=== PATIENT | female | born 1970 | race Caucasian/White ===

== ENCOUNTER → 2022-05-19 08:23 | Outpatient (BNVA) | payer OTHER, SELFPAY | PROVIDERS: PCP Internal Medicine; Visit Provider Nurse Practitioner Family | DX: G24.3 Spasmodic torticollis (principal) | CPT/HCPCS: 99212 ==

== ENCOUNTER → 2022-06-21 12:44 | Outpatient (BNVA) | payer OTHER, SELFPAY | PROVIDERS: Visit Provider Psychiatry & Neurology Neurology | DX: G24.3 Spasmodic torticollis (principal) | CPT/HCPCS: 64616; 99211; J0585 ==

== ENCOUNTER 2022-07-15 15:10 | Outpatient (REF) | payer OTHER, SELFPAY ==
--- NOTE | ~2022-07-15 | XR_ITS ---
EXAMINATION: XR CERVICAL SPINE CLINICAL INFORMATION: Cervicalgia COMPARISON: None available. TECHNIQUE: 6 views of the cervical spine, including flexion-extension views. FINDINGS: The vertebral alignment is normal. No prevertebral soft tissue swelling. Predental space is maintained. Vertebral body heights are maintained. No evidence of acute fracture. Disc spaces are relatively maintained. No evidence of abnormal subluxation on the flexion or extension views. Mild facet arthropathy at multiple levels. Apparent mild left neural foramen attachment in the upper neural foramen. XR/XR cervical spine w flex/ext IMPRESSION: No evidence of acute osseous abnormality. Mild cervical spondylosis
[2022-07-15 16:40] LABS: MANUAL DIFF FLAG NO
[2022-07-15 16:47] LABS: Basophils Absolute Auto 0.1 X10*3/uL (0.0-0.2); Basophils Percent Auto 1.1 % (0-2); Eosinophils Absolute Auto 0.2 X10*3/uL (0.0-0.4); Eosinophils Percent Auto 2.3 % (0-4); Hematocrit 44.5 % (37.0-47.0); Hemoglobin 14.7 g/dl (12.0-16.0); Imm Gran Abs Auto 0.03 X10*3/uL (0.00-0.03); Imm Gran Pct Auto 0.3 % (0.0-0.4); Lymphocytes Absolute Auto 2.8 X10*3/uL (1.2-4.9); Lymphocytes Percent Auto 29.5 % (20-40); Mean Corpuscular Hemoglobin 29.9 pg (27.0-33.0); Mean Corpuscular Volume 90.6 fL (80.0-98.0); Mean Platelet Volume 10.8 fL (9.4-12.3); Monocytes Absolute Auto 0.5 X10*3/uL (0.1-1.2); Monocytes Percent Auto 4.8 % (2-11); Neutrophils Absolute Auto 5.8 x10*3/uL (2.0-8.3); Platelet Count 199 X10*3/uL (160-400); Red Blood Count 4.91 X10*6/uL (4.20-5.50); Red Cell Distribution Width 13.2 % (11.0-16.0); White Blood Count 9.4 X10*3/uL (4.8-10.8)
[2022-07-15 17:40] LABS: Alanine Aminotransferase 15 U/L (0-31); Albumin Level 4.1 g/dL (3.5-5.0); Alkaline Phosphatase 97 U/L (39-117); Anion Gap 14 (12-20); Aspartate Amino Transferase 11 U/L (5-31); Bilirubin Total 0.3 mg/dL (0.0-1.0); Blood Urea Nitrogen 17 mg/dL (9-16); Calcium 9.4 mg/dL (8.4-10.2); Carbon Dioxide 27 mmol/L (22-29); Chloride 105 mmol/L (96-108); Estimated Glomerular Filt Rate > 60; Glucose Random 101 mg/dL (60-115); Potassium 3.7 mmol/L (3.3-5.1); Sodium 142 mmol/L (135-145); Total Protein 6.4 g/dL (6.5-8.0)
[2022-07-15 18:08] LABS: Folate 12.2 ng/mL (> or = 4.0); TSH reflex Free T4 1.84 uIU/mL (0.32-4.0); Vitamin B12 407 pg/mL (200-900)
== END 2022-07-15 15:11 | disposition home or self-care (01) ==
LOC: HO.HMGCLDS 15:10
PROVIDERS: Visit Provider Nurse Practitioner Family
DX: R20.2 Paresthesia of skin (principal); R53.83 Other fatigue; U07.1 COVID-19; M54.2 Cervicalgia
CPT/HCPCS: 36415; 72052; 80053; 82550; 82607; 82746; 84443; 85025

== ENCOUNTER 2022-07-28 09:38 | Outpatient (REF) | payer OTHER, SELFPAY ==
--- NOTE | 2022-07-28 09:40 | EMG_ITS ---
Bilateral median and ulnar motor and sensory studies were performed. Bilateral radial sensory studies were performed and paraspinal muscles were tested with a needle. IMPRESSION: No significant abnormality noted on this EEG to suggest entrapment neuropathy or radiculopathy. MD ALBERTO Saha/DUSTIN / [id number]
== END 2022-07-28 09:39 | disposition home or self-care (01) ==
LOC: HO.NEURO 09:38
PROVIDERS: Visit Provider Nurse Practitioner Family
DX: R20.2 Paresthesia of skin (principal); M54.2 Cervicalgia; R25.1 Tremor, unspecified
CPT/HCPCS: 95886; 95911

== ENCOUNTER → 2022-08-18 14:16 | Outpatient (BNVA) | payer OTHER, SELFPAY | PROVIDERS: Visit Provider Nurse Practitioner Family | DX: G24.3 Spasmodic torticollis (principal); R25.1 Tremor, unspecified; F32.A Depression, unspecified | CPT/HCPCS: 99212 ==

== ENCOUNTER → 2022-10-03 15:43 | Outpatient (BNVA) | payer OTHER, SELFPAY | PROVIDERS: Visit Provider Psychiatry & Neurology Neurology | DX: G24.3 Spasmodic torticollis (principal) | CPT/HCPCS: 64616; 99211; J0585 ==

== ENCOUNTER 2023-01-20 13:38 | Outpatient (AMB) | payer OTHER, SELFPAY ==
--- NOTE | 2023-01-20 13:43 | A.OFFVIS_ITS ---
Intake Vital Signs 01/20/23 13:45 Weight 168 lb 4 oz BP 120/70 Blood Pressure Location Rt brachial Position Sitting Pulse 96 Pulse Source Pulse Oximeter Pulse Oximetry (%) 98 Oxygen Delivery Method Room Air Intake Visit Reasons: Botox (B&B)-confirmed Intake Note: Pt is here for botox no new sxs Allergies prochlorperazine [From Compazine] Adverse Reaction (Intermediate, Verified 01/20/23 13:47) Unknown From COMPAZINE Allergy (Unknown, Uncoded 08/18/22 14:32) AGITATION Medication List - Last Reconciled 01/20/23 by Marily Rose MD ascorbic acid (vitamin C) 1 g PO Q6H cholecalciferol (vitamin D3) 25 mcg PO DAILY diphenhydramine HCl (Benadryl) 50 mg PO TID PRN gabapentin 100 - 300 mg (1 - 3 x 100 mg) PO BEDTIME 30 days loratadine (Allergy Relief (loratadine)) 10 mg PO DAILY onabotulinumtoxinA (Botox) 100 units IM ONCE 12 weeks HPI HPI Comments History of Present Illness0 Details 52 y/o female comes for treatment of her cervical dystonia ? Side effects including spread of toxin effect, dysphagia, breathing difficulties , bronchitis etc was discussed in detail and the patient agreed to the procedure.An informed consent was obtained ??? Botulinum toxin type A 100units X 1 -was diluted with 2 cc of normal saline at a concentration of 25 units in 0.5cc saline. Lot number [id number] expiration 06/2025 ??? Muscles injected ??? quique Splenius - 25 units each ??? Quique levator 25 units each ? Total used 100 units PFSH Surgical History History of hip replacement Hx of bone graft Hx of synovectomy Hx of appendectomy Family History Mother Hypertension Diabetes Maternal Grandmother Diabetes Paternal Grandfather Diabetes Paternal Grandmother Diabetes Social History Alcohol intake: never Patient Tobacco Use Status: Current everyday Tobacco user Physical Exam Vital Signs: Last Vital Signs Pulse 96 01/20/23 13:45 BP 120/70 01/20/23 13:45 Pulse Ox 98 01/20/23 13:45 Oxygen Delivery Method Room Air 01/20/23 13:45 Const General: cooperative and no acute distress Orientation/consciousness: patient oriented x3 HEENT Head: Yes normocephalic Resp Effort & Inspection: normal respiratory effort and able to speak in complete sentences Neuro Other: Head tremor. Tenderness in quique levator and splenius right laterocollis restricted range of motion Left shoulder region tightness. BUE postural tremor, left more so than right. LUE increased tremor w/ holding object. No appreciable tone in quique wrist or elbows. . General: patient oriented x3, gait normal and CN's II-XI intact bilaterally Cognition (Neuro): normal cognition Motor exam (neuro): 5/5 motor strength present throughout Psych Appearance: grossly normal Mental Status: mental status grossly normal Speech and movement: Clear speech present Affect: normal affect Attitude: cooperative Office Procedures Botulinum toxin Injection 60054 - Dystonia Procedure code (CPT) selection complete Office Meds onabotulinumtoxinA 100 unit solution for injection Performing Provider: Marily Rose MD Performing Location: [facility] [place] [facility] Administered by: Marily Rose MD on 01/20/23 14:26 Dose Route Admin Location Dispensed Lot Number Expiration Date 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 Panel Today R53.83 - Other fatigue Vitamin B12 and Folate Today R53.83 - Other fatigue Vitamin D 25-OH (D2 and D3) Today R53.83 - Other fatigue AMB Botulinum toxin Injection Today G24.3 - Spasmodic torticollis Coding Level of Care Code Est Pt Level 1 (05769) Diagnoses Cervical dystonia G24.3 CPT Codes Botox Injection - Botox 4: 79752 - Dystonia ([id number])
[2023-01-20 13:45] VITALS: BP 120/70; PULSE 96; O2SAT 98
== END 2023-01-20 14:15 | disposition home or self-care (01) ==
PROVIDERS: Visit Provider Psychiatry & Neurology Neurology
DX: G24.3 Spasmodic torticollis (principal)
CPT/HCPCS: 64616

== ENCOUNTER → 2023-01-20 13:38 | Outpatient (BNVA) | payer OTHER, SELFPAY | PROVIDERS: Visit Provider Psychiatry & Neurology Neurology | DX: G24.3 Spasmodic torticollis (principal) | CPT/HCPCS: 64616; 99211; J0585 ==

== ENCOUNTER 2023-05-22 07:25 | Outpatient (AMB) | payer OTHER, SELFPAY ==
--- NOTE | 2023-05-22 07:43 | A.OFFVIS_ITS ---
Intake Vital Signs 05/22/23 07:45 Height 5 ft 3 in Weight 160 lb 4 oz BMI 28.4 BP 132/70 Blood Pressure Location Rt brachial Position Sitting Respiration 16 Pulse 76 Pulse Source Palpation Intake Visit Reasons: Botox (B&B) - Confirmed Intake Note: Pt presents for Botox injections. 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 Allergies prochlorperazine [From Compazine] Adverse Reaction (Intermediate, Verified 05/22/23 07:43) Unknown From COMPAZINE Allergy (Unknown, Uncoded 05/22/23 07:43) AGITATION Medication List - Last Reconciled 05/22/23 by Marily Rose MD ascorbic acid (vitamin C) 1 g PO Q6H cholecalciferol (vitamin D3) 25 mcg PO DAILY diphenhydramine HCl (Benadryl) 50 mg PO TID PRN gabapentin 100 - 300 mg (1 - 3 x 100 mg) PO BEDTIME 30 days loratadine (Allergy Relief (loratadine)) 10 mg PO DAILY onabotulinumtoxinA (Botox) 100 units IM ONCE 12 weeks HPI HPI Comments History of Present Illness Details 52 y/o female comes for treatment of her cervical dystonia ? Side effects including spread of toxin effect, dysphagia, breathing difficulties , bronchitis etc was discussed in detail and the patient agreed to the procedure.An informed consent was obtained ??? Botulinum toxin type A 100units X 1 -was diluted with 2 cc of normal saline at a concentration of 25 units in 0.5cc saline. Lot number [id number] expiration 07/2025 ??? Muscles injected ??? aidan Splenius - 12.5 units each ??? Right levator 50 units each left levator - 25 units ? Total used 100 units [facility] Surgical History History of hip replacement Hx of bone graft Hx of synovectomy Hx of appendectomy Family History Mother Hypertension Diabetes Maternal Grandmother Diabetes Paternal Grandfather Diabetes Paternal Grandmother Diabetes Social History Alcohol intake: never Patient Tobacco Use Status: Current everyday Tobacco user Physical Exam Vital Signs: Last Vital Signs Pulse 76 05/22/23 07:45 Resp 16 05/22/23 07:45 BP 132/70 05/22/23 07:45 BMI result Body Mass Index 28.4 Const General: cooperative and no acute distress Orientation/consciousness: patient oriented x3 HEENT Head: Yes normocephalic Resp Effort & Inspection: normal respiratory effort and able to speak in complete sentences Neuro Other: Head tremor. Tenderness in aidan levator and splenius right laterocollis restricted range of motion Left shoulder region tightness. BUE postural tremor, left more so than right. LUE increased tremor w/ holding object. No appreciable tone in aidan wrist or elbows. . General: patient oriented x3, gait normal and CN's II-XI intact bilaterally Cognition (Neuro): normal cognition Motor exam (neuro): 5/5 motor strength present throughout Psych Appearance: grossly normal Mental Status: mental status grossly normal Speech and movement: Clear speech present Affect: normal affect Attitude: cooperative Office Procedures Botulinum toxin Injection 51998 - Dystonia Procedure code (CPT) selection complete Office Meds onabotulinumtoxinA 100 unit solution for injection Performing Provider: Marily Rose MD Per[place] [facility] [place] [facility] Administered by: Marily Rose MD on 05/22/23 10:05 Dose Route Admin Location Dispensed Lot Number Expiration Date [facility] [employer] 100 unit IM 100 units [id number] 07/30/25 6058-0907-68 [email or web address] Comments: see hpi Assessment & Plan Assessment & Plan (1) Cervical dystonia: Code(s): G24.3 - Spasmodic torticollis Plan Patient tolerated the procedure well she will call with any side effects Orders: Orders AMB Botulinum toxin Injection Today G24.3 - Spasmodic torticollis Coding Level of Care Code Est Pt Level 1 (09479) Diagnoses Cervical dystonia G24.3 CPT Codes Botox Injection - Botox 4: 50914 - Dystonia ([id number])
[2023-05-22 07:45] VITALS: BP 132/70; PULSE 76; RESP 16; BMI 28.4
== END 2023-05-22 08:10 | disposition home or self-care (01) ==
PROVIDERS: Visit Provider Psychiatry & Neurology Neurology
DX: G24.3 Spasmodic torticollis (principal)
CPT/HCPCS: 64616

== ENCOUNTER → 2023-05-22 07:25 | Outpatient (BNVA) | payer OTHER, SELFPAY | PROVIDERS: Visit Provider Psychiatry & Neurology Neurology | DX: G24.3 Spasmodic torticollis (principal) | CPT/HCPCS: 64616; 99211; J0585 ==

== ENCOUNTER 2023-08-15 12:51 | Outpatient (AMB) | payer OTHER, SELFPAY ==
--- NOTE | 2023-08-15 12:49 | MHC.OFFWIV ---
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 Intake Note: pt is here today for rt foot broken toe started today Patient Tobacco Use Status: Current everyday Tobacco user Allergies prochlorperazine [From Compazine] Adverse Reaction (Intermediate, Verified 08/15/23 13:34) Unknown From COMPAZINE Allergy (Unknown, Uncoded 08/15/23 13:34) AGITATION Medication List - Last Reconciled 08/15/23 by Moises Lozano MD ascorbic acid (vitamin C) 1 g PO Q6H cholecalciferol (vitamin D3) 25 mcg PO DAILY diphenhydramine HCl (Benadryl) 50 mg PO TID PRN gabapentin 100 - 300 mg (1 - 3 x 100 mg) PO BEDTIME 30 days meloxicam 15 mg PO DAILY onabotulinumtoxinA (Botox) 100 units IM ONCE 12 weeks Do you need a note to return to daycare/school/sports/work: Yes 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 Pt stubbed her right foot against the leg of a table. Happened today. PFSH Surgical History History of hip replacement Hx of bone graft Hx of synovectomy Hx of appendectomy Family History Mother Hypertension Diabetes Maternal Grandmother Diabetes Paternal Grandfather Diabetes Paternal Grandmother Diabetes Social History Alcohol intake: never Patient Tobacco Use Status: Current everyday Tobacco user Physical Exam Vital Signs: Last Vital Signs Temp 97.0 F 08/15/23 12:50 Pulse 88 08/15/23 12:50 BP 120/82 08/15/23 12:50 Pulse Ox 96 08/15/23 12:50 Oxygen Delivery Method Room Air 08/15/23 12:50 BMI result Body Mass Index 28.2 Extrem Other: Right foot: No bruising over the dorsum of the foot. Pain on flexion of the digits Assessment & Plan Assessment & Plan (1) Contusion, foot: Code(s): S90.30XA - Contusion of unspecified foot, initial encounter Plan: X ray images revd by me. No fracture seen. Meloxicam called in. Pt was advised to avoid weight bearing and keep the foot elevated. Orders: Orders XR foot RT min 3V Today S90.30XA - Contusion of unspecified foot, initial encounter Medications: New meloxicam 15 mg PO DAILY 14 tabs 0RF Coding Level of Care Code Est Pt Level 3 (89562) Diagnoses Contusion, foot S90.30XA
[2023-08-15 12:50] VITALS: BP 120/82; PULSE 88; TEMP 36.1; O2SAT 96; BMI 28.2
== END 2023-08-15 14:48 | disposition home or self-care (01) ==
PROVIDERS: Visit Provider Internal Medicine
DX: S90.30XA Contusion of unspecified foot, initial encounter (principal)
CPT/HCPCS: 99213

== ENCOUNTER 2023-08-15 13:08 | Outpatient (REF) | payer OTHER, SELFPAY ==
--- NOTE | ~2023-08-15 | XR_ITS ---
EXAMINATION: XR FOOT, RIGHT CLINICAL INFORMATION: Right foot contusion COMPARISON: Right foot 07/23/2008, report only TECHNIQUE: AP, lateral, and oblique views of the right foot. FINDINGS: There is mild hallux valgus. Some mild degenerative changes are present at the first MTP joint. There is plate and screw fusion of the navicular and cuboid. No acute soft tissue swelling, fractures or dislocations seen. XR/XR foot RT min 3V IMPRESSION: No evidence of an acute osseous injury. Mild hallux valgus and degenerative changes first MTP joint.
== END 2023-08-15 13:09 | disposition home or self-care (01) ==
LOC: HO.HMGCX 13:08
PROVIDERS: Visit Provider Internal Medicine
DX: S90.31XA Contusion of right foot, initial encounter (principal)
CPT/HCPCS: 73630

== ENCOUNTER 2023-08-23 08:12 | Outpatient (AMB) | payer OTHER, SELFPAY ==
[2023-08-23 09:10] VITALS: BP 126/76; PULSE 83; TEMP 36.3; O2SAT 97; BMI 28.0
--- NOTE | 2023-08-23 09:10 | AM.OFFWIN_ITS ---
Intake Vital Signs 08/23/23 09:10 Height 5 ft 3 in Weight 158 lb BMI 28.0 BP 126/76 Blood Pressure Location Lt brachial Position Sitting Pulse 83 Pulse Source Pulse Oximeter Temp 97.4 F Temp Source Temporal Artery Scan Pulse Oximetry (%) 97 Oxygen Delivery Method Room Air Intake Visit Reasons: EP Congestion, cold symptoms (masked) Intake Note: pt is here today for congestion cold symptoms started 2 days ago Patient Tobacco Use Status: Current everyday Tobacco user Allergies prochlorperazine [From Compazine] Adverse Reaction (Intermediate, Verified 08/23/23 09:47) Unknown From COMPAZINE Allergy (Unknown, Uncoded 08/23/23 09:47) AGITATION Medication List - Last Reconciled 08/23/23 by Moises Lozano MD ascorbic acid (vitamin C) 1 g PO Q6H cholecalciferol (vitamin D3) 25 mcg PO DAILY diphenhydramine HCl (Benadryl) 50 mg PO TID PRN Do you need a note to return to daycare/school/sports/work: Yes HPI EP Congestion, cold symptoms (masked) HPI Details Patient presents for a sick visit. Reporting symptoms of sinus congestion, sore throat and difficulty swallowing. Low-grade fever. No family member is sick. No recent travel. Patient reports symptoms of malaise and fatigue. [facility] Surgical History History of hip replacement Hx of bone graft Hx of synovectomy Hx of appendectomy Family History Mother Hypertension Diabetes Maternal Grandmother Diabetes Paternal Grandfather Diabetes Paternal Grandmother Diabetes Social History Alcohol intake: never Patient Tobacco Use Status: Current everyday Tobacco user Physical Exam Vital Signs: Last Vital Signs Temp 97.4 F 08/23/23 09:10 Pulse 83 08/23/23 09:10 BP 126/76 08/23/23 09:10 Pulse Ox 97 08/23/23 09:10 Oxygen Delivery Method Room Air 08/23/23 09:10 BMI result Body Mass Index 28.0 Const General: cooperative and healthy appearing Nutritional Appearance: well nourished Orientation/consciousness: patient oriented x3 Limitations: no limitations HEENT Head: Yes normal to inspection Eyes General: appearance normal, both eyes and all related structures Neck Neck: Yes normal visual inspection Chest Chest palpation & inspection: normal palpation of entire chest wall Resp Effort & Inspection: normal respiratory effort Neuro General: patient oriented x3 Assessment & Plan Assessment & Plan (1) Upper respiratory tract infection: Code(s): J06.9 - Acute upper respiratory infection, unspecified Plan: Antibiotics ordered. Increase fluid intake. Tylenol for aches and pains. If symptoms worsen, follow-up here for a recheck. Coding Level of Care Code Est Pt Level 3 (23820) Diagnoses Upper respiratory tract infection J06.9
== END 2023-08-23 10:43 | disposition home or self-care (01) ==
PROVIDERS: Visit Provider Internal Medicine
DX: J06.9 Acute upper respiratory infection, unspecified (principal)
CPT/HCPCS: 99213

== ENCOUNTER 2023-09-19 08:47 | Outpatient (AMB) | payer OTHER, SELFPAY ==
[2023-09-19 08:48] VITALS: BP 110/90; PULSE 77; TEMP 36.3; O2SAT 97; BMI 28.5
--- NOTE | 2023-09-19 08:48 | AM.OFFWIN_ITS ---
Intake Vital Signs 09/19/23 08:48 Height 5 ft 3 in Weight 161 lb BMI 28.5 BP 110/90 H Blood Pressure Location Lt brachial Position Sitting Pulse 77 Pulse Source Pulse Oximeter Temp 97.3 F Temp Source Temporal Artery Scan Pulse Oximetry (%) 97 Oxygen Delivery Method Room Air Intake Visit Reasons: EP congestion cough lightheaded Intake Note: pt is here today for congestion cough lightheaded started Patient Tobacco Use Status: Current everyday Tobacco user Allergies prochlorperazine [From Compazine] Adverse Reaction (Intermediate, Verified 09/19/23 08:57) Unknown From COMPAZINE Allergy (Unknown, Uncoded 08/23/23 09:47) AGITATION Do you need a note to return to daycare/school/sports/work: Yes HPI HPI Comments History of Present Illness Details 52-year-old female presents today compla ining of sinus pain and pressure for the last 2 weeks. She had a prior episode about a month ago and was put on azithromycin which resolved symptoms for a couple of days but then returned. She states she has sinus pain pressure and cough denies shortness of breath or chest pain PFSH Surgical History History of hip replacement Hx of bone graft Hx of synovectomy Hx of appendectomy Family History Mother Hypertension Diabetes Maternal Grandmother Diabetes Paternal Grandfather Diabetes Paternal Grandmother Diabetes Social History Alcohol intake: never Patient Tobacco Use Status: Current everyday Tobacco user Review of Systems Const All systems reviewed & are unremarkable except as noted in HPI and below Eyes Reports no additional complaints ENT Reports nasal congestion, Reports sinus pain and Reports sinus pressure Card Reports no additional complaints Resp Reports cough GI Reports no additional complaints Reports no additional complaints Physical Exam Vital Signs: Last Vital Signs Temp 97.3 F 09/19/23 08:48 Pulse 77 09/19/23 08:48 BP 110/90 H 09/19/23 08:48 Pulse Ox 97 09/19/23 08:48 Oxygen Delivery Method Room Air 09/19/23 08:48 BMI result Body Mass Index 28.5 HEENT Head: Yes normal to inspection, Yes normocephalic and Yes atraumatic Ears: hearing grossly normal bilaterally and TM's normal bilaterally General nose exam: Normal external nose present Face and sinus: Yes sinus tenderness Throat: Yes posterior oropharynx normal Resp Effort & Inspection: normal respiratory effort Auscultation: clear to auscultation bilaterally Cardio Palpation: normal PMI Rate: regular rate Rhythm: regular rhythm Assessment & Plan Assessment & Plan (1) Sinusitis: Code(s): J32.9 - Chronic sinusitis, unspecified Plan: The patient will be given an antibiotic and follow up with the PCP Plan See plan Medications: New amoxicillin 875 mg PO BID 14 tabs 0RF 7 days Coding Level of Care Code Est Pt Level 3 (46902) Diagnoses Sinusitis J32.9
== END 2023-09-19 09:51 | disposition home or self-care (01) ==
PROVIDERS: Visit Provider Physician Assistant Medical
DX: J32.9 Chronic sinusitis, unspecified (principal)
CPT/HCPCS: 99213

== ENCOUNTER 2023-12-28 10:10 | Outpatient (AMB) | payer OTHER, SELFPAY ==
--- NOTE | 2023-12-28 10:16 | A.OFFVIS_ITS ---
Vital Signs 12/28/23 10:17 Height 5 ft 3 in Weight 160 lb BMI 28.3 BP 108/72 Blood Pressure Location Rt brachial Position Sitting Respiration 16 Pulse 86 Pulse Source Pulse Oximeter Pulse Oximetry (%) 95 Oxygen Delivery Method Room Air Intake Visit Reasons: Botox Intake Note: Pt presents for Botox injections for cervical dystonia. 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 Allergies prochlorperazine [From Compazine] Adverse Reaction (Intermediate, Verified 12/28/23 10:17) Unknown From COMPAZINE Allergy (Unknown, Uncoded 12/28/23 10:17) AGITATION Medication List - Last Reconciled 12/28/23 by Marily Rose MD amoxicillin 875 mg PO BID 7 days ascorbic acid (vitamin C) 1 g PO Q6H azelastine 2 sprays intranasal BID 30 days azithromycin take 500 mg today (day 1), then 250 mg for 4 days (days 2-5) PO cholecalciferol (vitamin D3) 25 mcg PO DAILY diphenhydramine HCl (Benadryl) 50 mg PO TID PRN gabapentin 100 - 300 mg (1 - 3 x 100 mg) PO BEDTIME 30 days omeprazole 20 mg PO DAILY 90 days prednisone 60 mg (3 x 20 mg) PO DAILY 5 days HPI Comments Details: 53y/o female comes for treatment of her cervical dystonia ? Side effects including spread of toxin effect, dysphagia, breathing difficulties , bronchitis etc was discussed in detail and the patient agreed to the procedure.An informed consent was obtained ??? Botulinum toxin type A 100units X 2 -was diluted with 2 cc of normal saline at a concentration of 25 units in 0.5cc saline. Lot number [id number] expiration 01/2026 ??? Muscles injected ??? Right Splenius - 50 units each Left Splenius 25 units right SCM - 25 units ??? Quique levator 50 units each ? Total [id number] units PFS Surgical History History of hip replacement Hx of bone graft Hx of synovectomy Hx of appendectomy Family History Mother Hypertension Diabetes Maternal Grandmother Diabetes Paternal Grandfather Diabetes Paternal Grandmother Diabetes Social History Alcohol intake: never Patient Tobacco Use Status: Current everyday Tobacco user Physical Exam Vital Signs: Last Vital Signs Pulse 86 12/28/23 10:17 Resp 16 12/28/23 10:17 BP 108/72 12/28/23 10:17 Pulse Ox 95 12/28/23 10:17 Oxygen Delivery Method Room Air 12/28/23 10:17 BMI result Body Mass Index 28.3 Const General: cooperative and no acute distress Orientation/consciousness: patient oriented x3 HEENT Head: Yes normocephalic Resp Effort & Inspection: normal respiratory effort and able to speak in complete sentences Neuro Other: Head tremor. Tenderness in quique levator and splenius right laterocollis restricted range of motion Left shoulder region tightness. BUE postural tremor, left more so than right. LUE increased tremor w/ holding object. No appreciable tone in quique wrist or elbows. . General: patient oriented x3, gait normal and CN's II-XI intact bilaterally Cognition (Neuro): normal cognition Motor exam (neuro): 5/5 motor strength present throughout Psych Appearance: grossly normal Mental Status: mental status grossly normal Speech and movement: Clear speech present Affect: normal affect Attitude: cooperative Office Procedures Botulinum toxin Injection 01372 - Dystonia Procedure code (CPT) selection complete Office Meds onabotulinumtoxinA 100 unit solution for injection Performing Provider: Marily Rose MD Performing Location: [facility] [place] [facility] Administered by: Marily Rose MD on 12/28/23 10:46 Dose Route Admin Location Dispensed Lot Number Expiration Date [facility]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 Comments: see HPI Assessment & Plan Assessment & Plan (1) Cervical dystonia: Code(s): G24.3 - Spasmodic torticollis Category: Medical Plan Patient tolerated the procedure well she will call with any side effects Orders: Orders AMB Botulinum toxin Injection Today G24.3 - Spasmodic torticollis Medications: New onabotulinumtoxinA 100 units IM ONCE 2 ea 0RF spasmodic torticollis G24.3 - Spasmodic torticollis Coding Level of Care Code Est Pt Level 1 (01971) Diagnoses Cervical dystonia G24.3 CPT Codes Botox Injection - Botox 4: 57718 - Dystonia ([id number])
[2023-12-28 10:17] VITALS: BP 108/72; PULSE 86; RESP 16; O2SAT 95; BMI 28.3
== END 2023-12-28 10:42 | disposition home or self-care (01) ==
PROVIDERS: Visit Provider Psychiatry & Neurology Neurology
DX: G24.3 Spasmodic torticollis (principal)
CPT/HCPCS: 64616

== ENCOUNTER → 2023-12-28 10:10 | Outpatient (BNVA) | payer OTHER, SELFPAY | PROVIDERS: Visit Provider Psychiatry & Neurology Neurology | DX: G24.3 Spasmodic torticollis (principal) | CPT/HCPCS: 64616; 99211; J0585 ==

== ENCOUNTER 2024-03-19 11:00 | Outpatient (RCR) | payer OTHER, SELFPAY | END 2024-04-18 14:13 | disposition home or self-care (01) | LOC: HO.PTCHIC 11:00 | PROVIDERS: Visit Provider Orthopaedic Surgery | DX: M54.16 Radiculopathy, lumbar region (principal) | CPT/HCPCS: 97110; 97140; 97162 ==

== ENCOUNTER 2024-09-27 16:13 | Outpatient (AMB) | payer OTHER, SELFPAY ==
[2024-09-27 16:19] VITALS: BP 110/62; PULSE 89; TEMP 37; O2SAT 95; BMI 30.7
--- NOTE | 2024-09-27 16:19 | AM.OFFWIN_ITS ---
Intake Vital Signs 09/27/24 16:19 Height 5 ft 3 in Weight 173 lb 4 oz BMI 30.7 BP 110/62 Blood Pressure Location Rt brachial Position Sitting Pulse 89 Pulse Source Pulse Oximeter Temp 98.6 F Temp Source Oral Pulse Oximetry (%) 95 Oxygen Delivery Method Room Air Intake Visit Reasons: EP Itching on back of scalp Intake Note: Pt presents to the office today for c/o itching on the back of her scalp x4 weeks. Pt states she has tried dandruff shampoo and zyrtec with no relief. Patient Tobacco Use Status: Current everyday Tobacco user Allergies prochlorperazine [From Compazine] Adverse Reaction (Intermediate, Verified 09/27/24 16:21) Unknown From COMPAZINE Allergy (Unknown, Uncoded 09/27/24 16:21) AGITATION HPI HPI Comments History of Present Illness Details History of Present Illness - The patient is a 53-year-old female pr esenting with chronic itch in the back of the scalp. - Symptoms began four weeks prior and co nsist of a persistent, intense itch unrelieved by cessation of hair product use - She did try antihistamine which helped reduce the itching a little bit - She states she has a red patch at the base of the scalp, without bleeding or significant changes. - She has no prior history of eczema or similar conditions. Physical Exam General: Cooperative, healthy appearing, comfortable, no acute distress and well developed Orientation: Patient oriented x3 Limitations: No limitations Head: 2cm x 0.5cm oblong patch of erythema with dried edges, no warmth or drainage Ears: Hearing grossly normal bilaterally Nose: Normal External nose present Face and sinus: Normal facial exam Eyes: Appearance normal, both eyes and all related structures Neck: Normal visual inspection and Yes full ROM Respiratory: Normal respiratory effort and able to speak in complete sentences. Skin: as above Neuro: Patient oriented x3 Extremities: Normal to inspection PFSH Surgical History History of hip replacement Hx of bone graft Hx of synovectomy Hx of appendectomy Family History Mother Hypertension Diabetes Maternal Grandmother Diabetes Paternal Grandfather Diabetes Paternal Grandmother Diabetes Social History (System 07/31/24 @ 15:35 by Pauline Garcia) Alcohol intake: never Patient Tobacco Use Status: Current everyday Tobacco user Review of Systems Const All systems reviewed & are unremarkable except as noted in HPI and below Physical Exam Vital Signs: Last Vital Signs Temp 98.6 F 09/27/24 16:19 Pulse 89 09/27/24 16:19 BP 110/62 09/27/24 16:19 Pulse Ox 95 09/27/24 16:19 Oxygen Delivery Method Room Air 09/27/24 16:19 BMI result Body Mass Index 30.7 Assessment & Plan Assessment & Plan (1) Eczema: Code(s): L30.9 - Dermatitis, unspecified Qualifiers: Eczema type: other Qualified Code(s): L30.8 - Other specified dermatitis Plan: I am prescribing Clobetasol cream for the treatment of eczema on the scalp, with instructions to apply it twice daily for a week. This treatment aims to decrease inflammation and relieve the persistent itching. The formulation of cream is chosen to limit greasiness. Application advice includes using a Q-tip for precision and ensuring hands are washed after use to prevent skin thinning on the fingers. Care should be taken not to apply near the eyes, face, or genitals, to avoid adverse effects. Continued use beyond the initial treatment course should only be considered if minimal symptoms remain, and prolonged use should be avoided due to potential side effects. Patient was informed and verbally consented to the use of an ambient scribe for clinic note documentation during this visit. Medications: New clobetasol 0.05% Do not use on hands face or genitals. Please wash your hands after applying this medication or use gloves 1 appl topical BID 1 week 30 grams 0RF Coding Level of Care Code New Pt Level 3 (83528) Diagnoses Other eczema L30.8 Eczema type: other
== END 2024-09-27 16:32 | disposition home or self-care (01) ==
PROVIDERS: Visit Provider Physician Assistant
DX: L30.8 Other specified dermatitis (principal)

== ENCOUNTER → 2024-09-27 16:13 | Outpatient (BNVA) | payer OTHER, SELFPAY | PROVIDERS: Visit Provider Physician Assistant | DX: L30.8 Other specified dermatitis (principal) | CPT/HCPCS: 99202 ==